=== PATIENT | female | born 1960 | race Caucasian/White ===

== ENCOUNTER 2022-03-12 00:47 | Emergency (ER) | payer OTHER ==
[~2022-03-12] VITALS: Ht 157.5 cm; Wt 65.8 kg
--- NOTE | 2022-03-12 00:59 | NUR ---
PT BIBS FOR C/O L PINKY FINGER INJURY
--- NOTE | 2022-03-12 02:02 | NUR ---
WATCH REPAIR TECHNICIAN AT PT'S BEDSIDE
[2022-03-12] MEDS ORDERED: LIDOCAINE /MPF 1% VIAL 5 ML VIAL ONE (02:09)
--- NOTE | 2022-03-12 02:18 | NUR ---
LEFT 5TH DIGIT FINGER SPLINT APPLIED. +CMS NOTED.
--- NOTE | 2022-03-12 03:11 | NUR ---
AUTOMOTIVE SERVICE WRITER AT PT'S BEDSIDE
[2022-03-12 03:20] VITALS: BP 145/92
--- NOTE | 2022-03-12 03:20 | NUR ---
PT OK TO BE DISCHARGED PER DR CHRISTIAN. Patient discharged to home in stable condition. Written and verbal after care instructions given. Patient verbalizes understanding of instruction.Patient is awake and alert to self, day, and place. PT ambulatory with a steady gait
[2022-03-12] MEDS ORDERED: KETOROLAC TROMETHAMINE INJ 60 MG/2 ML VIAL IM ONE (03:30)
== END 2022-03-12 03:21 | disposition home or self-care (01) ==
LOC: ER 00:53
DX: S63.287A Dislocation of proximal interphalangeal joint of left little finger, initial encounter (principal); Z88.0 Allergy status to penicillin; Z88.5 Allergy status to narcotic agent; Z88.6 Allergy status to analgesic agent; Y04.0XXA Assault by unarmed brawl or fight, initial encounter; Y93.89 Activity, other specified; Y92.89 Other specified places as the place of occurrence of the external cause; Y99.8 Other external cause status
CPT/HCPCS: 26770; 73120 ×2; 73130; 99284; J3490

== ENCOUNTER 2022-09-03 03:57 | Emergency (ER) | payer OTHER ==
[~2022-09-03] VITALS: Ht 165.1 cm; Wt 72.6 kg
--- NOTE | 2022-09-03 04:30 | NUR ---
BIBS. L LEG WOUND S/P TRIP, FELL AND LEG OF THE CHAIR POKE HER LEG. ALSO, BOX FELL ON HER LEFT EYE, DISCOLORATION NOTED BUT DENIES KO. PATIENT IS AAOX4. PLACED COMFORTABLY IN BED. VITALS CHECKED. SKIN PREP DONE TO 4CM LACERATED WOUND ON LEFT POPLITEAL AREA.
[2022-09-03] MEDS ORDERED: LIDOCAINE 1% INJ 50 ML MDV IJ ONE (04:51)
[2022-09-03] MEDS ORDERED: TDAP [DIPH/PERTUSSIS/TET] 0.5 ML VIAL IM ONE ×2 (05:00→05:37)
[2022-09-03] MEDS ORDERED: LIDOCAINE 1%-EPI 1:100,000 20 ML VIAL TP ONE (05:00)
--- NOTE | 2022-09-03 05:05 | NUR ---
Sudheer little in [facility] - 09/03/22 at 0519 by ROSALIA PT TAKEN TO CT VIA NAKUL
--- NOTE | 2022-09-03 05:19 | NUR ---
PT TAKEN TO CT VIA NAKUL
--- NOTE | 2022-09-03 06:49 | NUR ---
FOR SUTURING OF LACERATED WOUND AT BEDSIDE BY DR YOUNG UNDER LOCAL ANESTHESIA
--- NOTE | 2022-09-03 07:16 | NUR ---
Patient discharged to home in stable condition. Written and verbal after care instructions given. Patient verbalizes understanding of instruction.
[2022-09-03 07:27] VITALS: BP 124/83
== END 2022-09-03 07:28 | disposition home or self-care (01) ==
LOC: ER 04:05
DX: S71.112A Laceration without foreign body, left thigh, initial encounter (principal); S00.12XA Contusion of left eyelid and periocular area, initial encounter; M54.2 Cervicalgia; Z88.0 Allergy status to penicillin; Z88.8 Allergy status to other drugs, medicaments and biological substances; Z60.2 Problems related to living alone; W07.XXXA Fall from chair, initial encounter; Y93.89 Activity, other specified; Y92.89 Other specified places as the place of occurrence of the external cause; Y99.8 Other external cause status
CPT/HCPCS: 99284; 72125; 12002; 90471; 90715; 73552; 73564; 70450; J3490; A6403

== ENCOUNTER 2023-11-07 10:04 | Emergency (ER) | payer MEDICARE, OTHER ==
[~2023-11-07] VITALS: Ht 157.5 cm; Wt 64.4 kg
[2023-11-07 10:17] VITALS: BP 129/81; TEMP 98.4; O2SAT 100
[2023-11-07] MEDS ORDERED: CLOT15CR27 TP (11:43)
[2023-11-07] MEDS ORDERED: INDO-12 PO (11:43)
[2023-11-07] MEDS ORDERED: KETOROLAC TROMETHAMINE 15 MG/ML VIAL IM ONE (12:30)
== END 2023-11-07 12:30 | disposition home or self-care (01) ==
LOC: ER 10:04
DX: M10.9 Gout, unspecified (principal); M19.072 Primary osteoarthritis, left ankle and foot; I10 Essential (primary) hypertension; Z88.0 Allergy status to penicillin; Z88.6 Allergy status to analgesic agent; Z88.5 Allergy status to narcotic agent; Z88.8 Allergy status to other drugs, medicaments and biological substances; Z60.2 Problems related to living alone
CPT/HCPCS: 73630-TC

== ENCOUNTER 2023-11-16 17:22 | Emergency (ER) | payer MEDICARE, OTHER ==
[~2023-11-16] VITALS: Ht 157.5 cm; Wt 63.5 kg
[~2023-11-16 17:22] MED LIST: CLOT15CR27 TP; INDO-12 PO
[2023-11-16 18:39] VITALS: BP 194/83; TEMP 98.9; O2SAT 98
[2023-11-16] MEDS ORDERED: KETOROLAC TROMETHAMINE INJ 60 MG/2 ML VIAL IM ONE (19:30)
[2023-11-16] MEDS ORDERED: COLCHICINE 0.6 MG TABLET PO ONE ×2 (19:30→21:00)
[2023-11-16] MEDS ORDERED: predniSONE 50 MG TABLET PO ONE (19:30)
[2023-11-16] MEDS ORDERED: KETOROLAC TROMETHAMINE INJ 30 MG/ML VIAL ONE (19:40)
[2023-11-16] MEDS ORDERED: predniSONE 20 MG TABLET ONE (19:40)
[2023-11-16] MEDS ORDERED: COLCHICINE 0.6 MG TABLET ONE ×2 (19:41→21:01)
[2023-11-16] MEDS ORDERED: INDO50CA92 PO (21:01)
[2023-11-16] MEDS ORDERED: METH4TAB17 PO (21:01)
== END 2023-11-16 21:07 | disposition home or self-care (01) ==
LOC: ER 17:25
DX: M10.9 Gout, unspecified (principal); I10 Essential (primary) hypertension; F17.200 Nicotine dependence, unspecified, uncomplicated; Z79.899 Other long term (current) drug therapy; Z60.2 Problems related to living alone; Z88.0 Allergy status to penicillin; Z88.5 Allergy status to narcotic agent; Z88.1 Allergy status to other antibiotic agents
CPT/HCPCS: 99284; 96372; J7512; J1885

== ENCOUNTER 2023-12-12 09:10 | Emergency (ER) | payer MEDICARE, OTHER ==
[~2023-12-12] VITALS: Ht 157.5 cm; Wt 62.1 kg
[~2023-12-12 09:10] MED LIST changes: +INDO50CA92 PO; +METH4TAB17 PO
[2023-12-12] MEDS ORDERED: LIDOCAINE 5% (PATCH) 1 EA PATCH TP STA (09:44)
[2023-12-12] MEDS ORDERED: KETOROLAC TROMETHAMINE 15 MG/ML VIAL ONE (09:48)
[2023-12-12] MEDS ORDERED: LIDOCAINE 5% (PATCH) 1 EA PATCH TP ONE (09:48)
[2023-12-12 10:00] VITALS: BP 145/88; TEMP 98; O2SAT 99
[2023-12-12] MEDS ORDERED: KETOROLAC TROMETHAMINE 15 MG/ML VIAL IM ONE (10:00)
[2023-12-12] MEDS ORDERED: CYCL5TAB PO (10:10)
[2023-12-12] MEDS ORDERED: LIDO30AD10 TP (10:10)
[2023-12-12] MEDS ORDERED: IBUP-1955 PO (10:10)
[2023-12-12] MEDS ORDERED: HYDR25TA4 PO (10:10)
== END 2023-12-12 10:23 | disposition home or self-care (01) ==
LOC: ER 09:21
DX: S16.1XXA Strain of muscle, fascia and tendon at neck level, initial encounter (principal); S46.811A Strain of other muscles, fascia and tendons at shoulder and upper arm level, right arm, initial encounter; M54.12 Radiculopathy, cervical region; G44.209 Tension-type headache, unspecified, not intractable; I10 Essential (primary) hypertension; Z88.0 Allergy status to penicillin; Z88.8 Allergy status to other drugs, medicaments and biological substances; Z60.2 Problems related to living alone; X58.XXXA Exposure to other specified factors, initial encounter; Y93.89 Activity, other specified; Y92.89 Other specified places as the place of occurrence of the external cause; Y99.8 Other external cause status
CPT/HCPCS: 99283; 96372; J1885